=== PATIENT | female | born 1945 | race Hispanic/Latino ===

== ENCOUNTER 2020-08-07 06:00 | Day surgery (SDC) | payer MEDICARE, OTHER ==
[2020-08-02 11:49] LABS: BASOPHILS % (AUTO) 0.5 % (0.0-5.0); EOSINOPHILS % (AUTO) 1.6 % (0.0-8.0); HEMATOCRIT 38.9 % (36-48); LYMPHOCYTES % (AUTO) 25.9 % (21.0-51.0); MEAN CORPUSCULAR HEMOGLOBIN 30.7 pg (27.0-33.0); MEAN CORPUSCULAR HGB CONC 32.4 g/dL (32.0-36.0); MEAN CORPUSCULAR VOLUME 94.9 fL (79-99); MONOCYTES % (AUTO) 6.7 % (3.0-13.0); NEUTROPHILS % (AUTO) 65.1 % (40.0-77.0); PLATELET COUNT (AUTO) 299 K/uL (130-400); RED CELL DISTRIBUTION WIDTH 12.9 % (11.0-15.5); WHITE BLOOD COUNT (AUTO) 5.5 K/uL (4.8-10.8)
[2020-08-02 11:52] LABS: APPEARANCE,URINE CLOUDY (CLEAR); BILIRUBIN,URINE NEGATIVE (NEGATIVE); COLOR,URINE YELLOW (YELLOW); GLUCOSE, URINE (UA) NEGATIVE (NEGATIVE); KETONES,URINE NEGATIVE (NEGATIVE); LEUKOCYTE ESTERASE ,URINE NEGATIVE (NEGATIVE); NITRATE,URINE NEGATIVE (NEGATIVE); OCCULT BLOOD,URINE NEGATIVE (NEGATIVE); PROTEIN,URINE NEGATIVE (NEGATIVE)
[2020-08-02 12:02] LABS: POTASSIUM 3.7 mmol/L (3.5-5.1)
[2020-08-02 12:06] LABS: INR 0.92 (0.85-1.15)
[2020-08-02 12:47] VITALS: BP 216/88
[2020-08-02 13:05] LABS: BACTERIA,URINE Moderate /HPF (None Seen)
[2020-08-02 13:06] LABS: AMORPHOUS SEDIMENT,UR Moderate /LPF (None Seen); RBC,URINE None Seen /HPF (0-1); SQUAMOUS EPITHELIAL CELL,UR 0-2 /HPF (0-2); WBC,URINE None Seen /HPF (0-1)
--- NOTE | 2020-08-04 14:24 | NUR ---
RE: ABNORMAL EKG REPORTED EKG TO DR SALINAS, NO NEW ORDERS. MAY PROCEED WITH SCHEDULED SURGERY.
[~2020-08-07] VITALS: Ht 161.3 cm; Wt 65.3 kg
[2020-08-07] VITALS (17 sets, daily range): BP systolic 124–187; BP diastolic 59–97
[~2020-08-07 06:00] MED LIST: ASPI-1197 PO; ATOR10 PO; BRAIN BOOSTER PO; CARV3.12 PO; ESCI20TA36 PO; HYDR-4377 PO; IRON PO; LORA0.5T83 PO; MELA10CA2 PO; MEMA10TA11 PO; MEMA10TA55 PO; MV-M1TAB57 PO
[2020-08-07] MEDS ORDERED: CEFAZOLIN SODIUM 1 GM VIAL ONE ×2 (06:16→07:18)
[2020-08-07] MEDS ORDERED: LACTATED RINGERS 1000ML 1,000 ML IV ONE (06:16)
--- NOTE | 2020-08-07 06:30 | NUR ---
preop pt arrived via w/c in no distress with sling to rt arm. at side. pt and oriented to room and efren light. will continue to monitor pt. pt has slight bruising to fingernail on rt hand
[2020-08-07] MEDS ORDERED: SUCCINYLCHOLINE CHLORIDE 20 MG/ML 10 ML VIAL ONE (07:35)
[2020-08-07] MEDS ORDERED: LIDOCAINE PF 2% 5ML ABBOJECT ONE (07:35)
[2020-08-07] MEDS ORDERED: DEXAMETHASONE SOD PHOSPHATE 10MG/ML 1ML VIAL ONE (07:36)
[2020-08-07] MEDS ORDERED: PROPOFOL 10 MG/ML 20ML VIAL IV ONE (07:36)
[2020-08-07] MEDS ORDERED: ONDANSETRON HCL 4 MG/2 ML VIAL ONE (07:37)
[2020-08-07] MEDS ORDERED: FENTANYL CITRATE PF 50 MCG/1 ML 2ML VIAL ONE (07:37)
[2020-08-07] MEDS ORDERED: ROCURONIUM 10MG/1ML SYR 10 MG/ML ML ONE (07:37)
[2020-08-07] MEDS ORDERED: MEPERIDINE-PF 25 MG/ML SYG ONE (08:06)
[2020-08-07] MEDS ORDERED: ROPIVACAINE 0.5% 5MG/ML 30ML IJ ONE (08:15)
[2020-08-07] MEDS ORDERED: GLYCOPYRROLATE 1 MG/5 ML SYRINGE ONE (08:23)
[2020-08-07] MEDS ORDERED: KETOROLAC TROMETHAMINE 30MG/ML ONE (09:51)
[2020-08-07] MEDS ORDERED: HYDR-4377 PO (10:06)
[2020-08-07] MEDS ORDERED: CEPH500B PO (10:06)
[2020-08-07] MEDS ORDERED: HYDRALAZINE HCL 20 MG/ML VIAL ONE (10:38)
== END 2020-08-07 12:20 | disposition home or self-care (01) ==
LOC: DAH 06:00
PROVIDERS: ATTEND Orthopaedic Surgery
DX: S52.571A Other intraarticular fracture of lower end of right radius, initial encounter for closed fracture (principal); G30.9 Alzheimer's disease, unspecified; I10 Essential (primary) hypertension; I45.10 Unspecified right bundle-branch block; W19.XXXA Unspecified fall, initial encounter; Y93.89 Activity, other specified; Y92.89 Other specified places as the place of occurrence of the external cause; Y99.8 Other external cause status; Z20.828 Contact with and (suspected) exposure to other viral communicable diseases; Z79.01 Long term (current) use of anticoagulants; Z79.899 Other long term (current) drug therapy
CPT/HCPCS: 25608; 36415; 73110; 80048; 81001; 85025; 85610; 87088; 87641; 93005; A4215; A4221; A4222; A4223; A4649 ×4; A4663; A4930; A6223; C1713 ×5; C1776; C9803; J0330; J0360; J0690 ×2; J1100; J1885; J2001; J2175; J2405; J2704; J2795; J3010; J3490; J7030; J7120; Q4051; U0003

== ENCOUNTER 2021-03-12 12:01 | Observation (INO) | payer MEDICARE ==
[~2021-03-12] VITALS: Ht 162.6 cm; Wt 60.1 kg
[~2021-03-12 12:01] MED LIST changes: +CEPH500B PO; -ESCI20TA36 PO; +ESCI20TA38 PO
[2021-03-12 12:36] LABS: BASOPHILS % (AUTO) 1.1 % (0.0-5.0); HEMATOCRIT 36.9 % (36-48); LYMPHOCYTES % (AUTO) 38.2 % (21.0-51.0); MEAN CORPUSCULAR HEMOGLOBIN 30.9 pg (27.0-33.0); MEAN CORPUSCULAR HGB CONC 32.5 g/dL (32.0-36.0); MEAN CORPUSCULAR VOLUME 95.1 fL (79-99); MONOCYTES % (AUTO) 7.9 % (3.0-13.0); NEUTROPHILS % (AUTO) 49.5 % (40.0-77.0); PLATELET COUNT (AUTO) 275 K/uL (130-400); RED BLOOD CELL COUNT(AUTO) 3.88 MIL/uL (4.00-5.50); RED CELL DISTRIBUTION WIDTH 13.2 % (11.0-15.5); WHITE BLOOD COUNT (AUTO) 3.7 K/uL (4.8-10.8)
[2021-03-12 12:53] LABS: ALBUMIN 3.5 g/dL (3.5-5.0); BILIRUBIN,TOTAL 0.6 mg/dL (0.2-1.0); CREATININE 1.4 mg/dL (0.5-1.5); POTASSIUM 4.2 mmol/L (3.5-5.1); TOTAL PROTEIN, SERUM 6.9 g/dL (6.0-8.3)
[2021-03-12 12:57] LABS: INR 0.96 (0.85-1.15); PROTHROMBIN TIME 10.5 SEC (9.6-11.6)
[2021-03-12 12:58] LABS: PARTIAL THROMBOPLASTIN TIME 24.1 SEC (26.3-35.5)
[2021-03-12] MEDS ORDERED: ACETAMINOPHEN 325 MG TAB PO PRN (16:30)
[2021-03-12] MEDS ORDERED: ONDANSETRON HCL 4 MG/2 ML VIAL IV PRN (16:30)
[2021-03-12] MEDS ORDERED: IPRATROPIUM/ALBUTEROL SULFATE 3 ML SOLUTION IH PRN (16:30)
[2021-03-12] MEDS ORDERED: LACTULOSE 20 GM/30 ML UDCUP PO PRN (16:30)
[2021-03-12] MEDS ORDERED: MAG HYDROX/AL HYDROX/SIMETH ES 30 ML SUSP UDCUP PO PRN (16:30)
[2021-03-12] MEDS ORDERED: NITROGLYCERIN 0.4 MG SL TAB SL PRN (16:30)
[2021-03-12] MEDS ORDERED: CARVEDILOL 3.125 MG TABLET PO SCH (21:00)
[2021-03-12] MEDS ORDERED: FAMOTIDINE 20MG TAB 20 MG TAB PO SCH (21:00)
[2021-03-12] MEDS ORDERED: FAMOTIDINE 20MG TAB 20 MG TAB ONE (21:06)
[2021-03-12 22:30] VITALS: BP 165/85
[2021-03-12] MEDS ORDERED: DONE5TAB33 PO (22:44)
[2021-03-12] MEDS ORDERED: iron PO (22:44)
[2021-03-13 04:00] VITALS: BP 156/69
[2021-03-13 05:24] LABS: BASOPHILS % (AUTO) 0.6 % (0.0-5.0); EOSINOPHILS % (AUTO) 2.9 % (0.0-8.0); HEMATOCRIT 35.5 % (36-48); LYMPHOCYTES % (AUTO) 39.6 % (21.0-51.0); MEAN CORPUSCULAR HEMOGLOBIN 30.7 pg (27.0-33.0); MEAN CORPUSCULAR VOLUME 93.2 fL (79-99); MONOCYTES % (AUTO) 10.2 % (3.0-13.0); NEUTROPHILS % (AUTO) 46.5 % (40.0-77.0); PLATELET COUNT (AUTO) 231 K/uL (130-400); RED BLOOD CELL COUNT(AUTO) 3.81 MIL/uL (4.00-5.50); RED CELL DISTRIBUTION WIDTH 13.1 % (11.0-15.5); WHITE BLOOD COUNT (AUTO) 4.8 K/uL (4.8-10.8)
[2021-03-13 05:37] LABS: CREATININE 1.2 mg/dL (0.5-1.5); MAGNESIUM 2.3 mg/dL (1.80-2.40); POTASSIUM 4.1 mmol/L (3.5-5.1)
[2021-03-13] MEDS ORDERED: FERROUS SULFATE 325 MG TABLET.DR PO SCH (07:24)
[2021-03-13 08:22] VITALS: BP 155/74
[2021-03-13] MEDS ORDERED: ATORVASTATIN CALCIUM 10 MG TABLET PO SCH (09:00)
[2021-03-13] MEDS ORDERED: [UNRECOGNIZED DRUG - OTHER] PO SCH (09:00)
[2021-03-13] MEDS ORDERED: AMLODIPINE BESYLATE 5 MG TAB PO SCH (09:00)
[2021-03-13] MEDS ORDERED: MEMANTINE HCL 5 MG TABLET PO SCH ×2 (09:00→21:00)
[2021-03-13] MEDS ORDERED: MULTIVITAMIN WITH MINERALS TABLET PO SCH (09:00)
[2021-03-13] MEDS ORDERED: ENOXAPARIN SODIUM 40 MG/0.4 ML SYRINGE SQ SCH (09:00)
[2021-03-13 12:23] VITALS: BP 151/58
[2021-03-13 16:00] VITALS: BP 161/85
[2021-03-13] MEDS ORDERED: ***HM***(Melatonin 10 MG) PO SCH (21:00)
[2021-03-13] MEDS ORDERED: CITALOPRAM 20 MG TABLET PO SCH (21:00)
[2021-03-13] MEDS ORDERED: LORAZEPAM 0.5 MG TABLET PO SCH (21:00)
== END 2021-03-13 18:20 | disposition home or self-care (01) ==
LOC: EDH 12:01 → EDHIP 15:10 → 4BH 22:06
PROVIDERS: ADMIT Internal Medicine; ATTEND Internal Medicine
DX: R00.2 Palpitations (principal); I45.10 Unspecified right bundle-branch block; R00.1 Bradycardia, unspecified; I10 Essential (primary) hypertension; E78.5 Hyperlipidemia, unspecified; F03.90 Unspecified dementia, unspecified severity, without behavioral disturbance, psychotic disturbance, mood disturbance, and anxiety; F32.9 Major depressive disorder, single episode, unspecified; F41.9 Anxiety disorder, unspecified; Z79.899 Other long term (current) drug therapy; Z88.8 Allergy status to other drugs, medicaments and biological substances
CPT/HCPCS: 36415 ×2; 71045; 80048; 80053; 82550; 83735 ×2; 83880; 84484 ×3; 85025 ×2; 85610; 85730; 93005; 93306; 94664; 96372; 99285; G0378 ×26; J1650

== ENCOUNTER 2023-03-21 18:40 | Emergency (ER) | payer MEDICARE ==
[~2023-03-21] VITALS: Ht 160 cm; Wt 63.5 kg
[~2023-03-21 18:40] MED LIST changes: -ASPI-1197 PO; -CARV3.12 PO; -CEPH500B PO; -HYDR-4377 PO; -IRON PO; +iron PO
[2023-03-21 18:48] VITALS: BP 145/68
== END 2023-03-21 20:21 | disposition left against medical advice (07) ==
LOC: EDH 18:40
DX: F41.0 Panic disorder [episodic paroxysmal anxiety] (principal); Z53.21 Procedure and treatment not carried out due to patient leaving prior to being seen by health care provider
CPT/HCPCS: 99281

== ENCOUNTER 2023-03-22 11:58 | Emergency (ER) | payer MEDICARE ==
[~2023-03-22] VITALS: Ht 160 cm; Wt 63.5 kg
[2023-03-22 13:29] LABS: BASOPHILS % (AUTO) 0.4 % (0.0-5.0); EOSINOPHILS % (AUTO) 0.4 % (0.0-8.0); HEMATOCRIT 36.9 % (36-48); LYMPHOCYTES % (AUTO) 21.3 % (21.0-51.0); MEAN CORPUSCULAR HEMOGLOBIN 31.1 pg (27.0-33.0); MEAN CORPUSCULAR HGB CONC 33.1 g/dL (32.0-36.0); MEAN CORPUSCULAR VOLUME 94.1 fL (79-99); MONOCYTES % (AUTO) 5.6 % (3.0-13.0); NEUTROPHILS % (AUTO) 72.1 % (40.0-77.0); PLATELET COUNT (AUTO) 278 K/uL (130-400); RED BLOOD CELL COUNT(AUTO) 3.92 MIL/uL (4.00-5.50); RED CELL DISTRIBUTION WIDTH 13.6 % (11.0-15.5); WHITE BLOOD COUNT (AUTO) 5.7 K/uL (4.8-10.8)
[2023-03-22 13:43] LABS: ALBUMIN 3.9 g/dL (3.5-5.0); CREATININE 1.1 mg/dL (0.5-1.5); MAGNESIUM 2.5 mg/dL (1.80-2.40); POTASSIUM 3.6 mmol/L (3.5-5.1); TOTAL PROTEIN, SERUM 7.1 g/dL (6.0-8.3)
[2023-03-22 14:05] LABS: APPEARANCE,URINE CLOUDY (CLEAR); BILIRUBIN,URINE NEGATIVE (NEGATIVE); COLOR,URINE LIGHT-YELLOW (YELLOW); GLUCOSE, URINE (UA) NEGATIVE (NEGATIVE); KETONES,URINE 60 mg/dL (NEGATIVE); LEUKOCYTE ESTERASE ,URINE NEGATIVE Leu/uL (NEGATIVE); NITRATE,URINE NEGATIVE (NEGATIVE); OCCULT BLOOD,URINE NEGATIVE (NEGATIVE); PROTEIN,URINE NEGATIVE (NEGATIVE); UROBILINOGEN,URINE 0.2 mg/dL (0.2-1.0)
[2023-03-22 14:14] LABS: BACTERIA,URINE RARE /HPF (None Seen); MUCUS,URINE RARE LPF (None Seen); RBC,URINE 0-1 /HPF (0-1); SQUAMOUS EPITHELIAL CELL,UR RARE /HPF (0-2)
[2023-03-22 15:10] VITALS: BP 138/65
== END 2023-03-22 15:43 | disposition home or self-care (01) ==
LOC: EDH 11:58
DX: R06.4 Hyperventilation (principal); F41.9 Anxiety disorder, unspecified; I10 Essential (primary) hypertension; F03.90 Unspecified dementia, unspecified severity, without behavioral disturbance, psychotic disturbance, mood disturbance, and anxiety; Z79.899 Other long term (current) drug therapy
CPT/HCPCS: 36415; 71045; 80053; 81001; 83735; 84484; 85025; 93005